=== PATIENT | female | born 1945 | race Caucasian/White ===

== ENCOUNTER 2018-11-03 06:21 | Day surgery (SDC) | payer OTHER, BC ==
[2018-10-30 15:56] VITALS: BMI 33.9
[2018-11-03] MEDS ORDERED: ONDANSETRON 4 MG/2 ML VIAL IVPUSH PRN ×2 (07:18→08:17)
[2018-11-03] MEDS ORDERED: LACTATED RINGERS SOLUTION 1,000 ML IV SCH (07:30)
[2018-11-03] MEDS ORDERED: oxyCODONE HCL 5 MG TABLET PO PRN (08:17)
[2018-11-03] MEDS ORDERED: IBUPROFEN 600 MG TABLET (FP) PO PRN (08:17)
[2018-11-03] MEDS ORDERED: IBUPROFEN 800 MG/8 ML IJ IVPB PRN (08:17)
--- NOTE | 2018-11-03 08:17 | HP ---
History & Physical Update - History History: No Change - Physical Physical: No Change - Assessment Assessment: No Change - Plan Plan: No Change (CHart reviewed, no change since 10/22/2018)
--- NOTE | 2018-11-03 08:17 | OP ---
Operative Note - Note: Operative Date: 11/03/18 Pre-Operative Diagnosis: 73yo P1 with thick endometrium, h/o Breast CA Operation: Hysteroscopy, D&C Findings: Overgrown Endometrium, small submucosal fibroid Post-Operative Diagnosis: Same as Pre-op Surgeon: Yen Oden Anesthesiologist/BUSINESS PERFORMANCE ADVISOR: Piotr Marti Anesthesia: MAC Estimated Blood Loss (mls): 5 Instrument used (Debridements only): Symphion Drains & Tubes with Location: Fluid deficit 150cc Drains, Volume Out (mls): 10 Fluid Volume Replaced (mls): 150 Operative Report Dictated: Yes
[2018-11-03] MEDS ORDERED: ACETAMINOPHEN 1000 MG/100 ML VIAL (NON FORMULARY) IVPB ONE (08:23)
[2018-11-03] MEDS ORDERED: ACETAMINOPHEN INJECTION 100 ML IVPB ONE (08:26)
[2018-11-03] MEDS ORDERED: ELECTROLYTE-148 SOLN 1,000 ML IV SCH (08:30)
[2018-11-03 09:20] VITALS: TEMP 97.3
[2018-11-03 10:40] VITALS: BP 125/71; PULSE 60
--- NOTE | 2018-11-03 12:36 | OP ---
DATE OF OPERATION: 11/03/2018 PREOPERATIVE DIAGNOSIS: A 73-year-old para 1 with thickened endometrial stripe, history of breast and lung cancer. OPERATION: Hysteroscopy, dilation and curettage. FINDINGS: Overgrown endometrial and small submucosal fibroid. POSTOPERATIVE DIAGNOSIS: A 73-year-old para 1 with thickened endometrial stripe, history of breast and lung cancer. SURGEON: Romaine Zamorano MD ANESTHESIOLOGIST: Piotr Marti MD ANESTHESIA: MAC. DESCRIPTION OF OPERATIVE PROCEDURE: After ensuring informed consent, the patient was brought to the operating room where she was placed in dorsal lithotomy position. The perineum and vagina were prepped and draped in sterile fashion. The Symphion hysteroscope was assembled and primed. The Palomino retractors were placed into the vagina, and anterior cervical lip was grasped with single-tooth tenaculum. Cervix was gradually dilated to accommodate 3.6-mm hysteroscope. Hysteroscope was introduced through the cervix into the uterus without any difficulty with good visualization. Intact endometrial cavity was observed. Bilateral ostia were visualized. The overgrown endometrial lining was noted. The resectoscope was introduced through the operative channel, and circumferential resection of the endometrium was performed. Contents of curettage were sent to Pathology. All instruments subsequently were removed from uterus, cervix, and vagina after adequate hemostasis was assured at all the sites. Estimated blood loss 5 mL. Patient received 150 mL of IV fluids. Drains 10 mL of urine through the straight catheter. Fluid deficit was noted to be 150 mL. Instrument and sponge count was correct x2. The patient was brought to the recovery room in stable condition, extubated. ROMAINE ZAMORANO M.D. [id number]
--- NOTE | 2018-11-04 16:30 | PATH ---
Surgical Pathology Report Patient Name: MARY ANDERSON [facility]. Rec. #: [id number] /Age/Gender: 1945 (Age: 73) / F Account: [id number] Location: [facility] SURGICAL Taken: 11/03/2018 Received: 11/03/2018 Reported: 11/04/2018 Physicians: Yen Oden M.D. Specimen(s) Received ENDOMETRIAL CURETTINGS Clinical History Endometrial thickening, breast CA, lung CA Final Diagnosis ENDOMETRIAL CURETTINGS: SCANT PROLIFERATIVE ENDOMETRIAL TISSUE WITH THERMAL EFFECT. MULTIPLE FRAGMENTS OF SMOOTH MUSCLE BUNDLES, MAY REPRESENT A SUBMUCOSA LEIOMYOMA IN THE PROPER CLINICAL SETTING. SUGGEST CLINICAL CORRELATION. Electronically Signed Lynn Hawkins M.D. Gross Description Received in formalin, labeled "endometrial curettings" are multiple mejia portions of soft tissue measuring 2 x 2 x 0.3 cm in aggregate. The specimens are submitted in toto in one cassette. SLIM/11/03/2018 rajiv/11/03/2018
== END 2018-11-03 10:46 | disposition home or self-care (01) ==
LOC: JASU-SURG 06:21
PROVIDERS: ATTEND Obstetrics & Gynecology
PROC: 0UDB8ZX Extraction of Endometrium, Via Natural or Artificial Opening Endoscopic, Diagnostic (ICD-10-PCS; principal; 2018-11-03 07:30)
DX: N85.00 Endometrial hyperplasia, unspecified (principal); Z85.3 Personal history of malignant neoplasm of breast; Z85.118 Personal history of other malignant neoplasm of bronchus and lung; Z90.12 Acquired absence of left breast and nipple
CPT/HCPCS: 88305-TC; 94760; J0131